=== PATIENT | male | born 1975 | race Two or more races ===

== ENCOUNTER 2016-10-17 15:24 | Inpatient (IN) | payer BC, MEDICAID ==
[~2016-10-17] VITALS: Ht 170.2 cm; Wt 67.6 kg
[~2016-10-17 15:24] MED LIST: AMLO10TA2 PO; ASPI81TA2 PO; BENA10TA2 PO; CLAR500T PO; DOCU-25 PO; FAMO20TA8 PO; GABA-534 PO; LACT10SO PO; METF10002 PO; METO10TA3 PO; METR-105 PO; PANT40TA4 PO; TYL2T PO
--- NOTE | 2016-10-17 15:42 | NUR ---
DR LEON AT BEDSIDE FOR EVAL.
[2016-10-17] MEDS ORDERED: LORAZEPAM INJ 2 MG/ML VIAL ONE (15:53)
[2016-10-17] MEDS ORDERED: IV NS 0.9% 1,000 ML BAG IV ONE ×2 (16:00→17:00)
[2016-10-17] MEDS ORDERED: LORAZEPAM INJ 2 MG/ML VIAL IV ONE (16:00)
[2016-10-17 16:04] LABS: BASOPHILS # (AUTO) 0.1 /CMM (0.0-0.2); BASOPHILS % (AUTO) 0.5 % (0.0-2.0); EOSINOPHILS % (AUTO) 0.3 % (0.0-6.0); HEMATOCRIT 49 % (39-51); HEMOGLOBIN 16.5 g/dL (13.5-17.5); LYMPHOCYTES # (AUTO) 1.4 /CMM (0.8-4.8); LYMPHOCYTES % (AUTO) 11.7 % (20.0-44.0); MEAN CORPUSCULAR HEMOGLOBIN 32 PG (26.0-33.0); MEAN CORPUSCULAR HGB CONC 34 g/dl (31.0-36.0); MEAN CORPUSCULAR VOLUME 94 fL (80-96); MONOCYTES # (AUTO) 0.8 /CMM (0.1-1.30); MONOCYTES % (AUTO) 6.8 % (2.0-12.0); NEUTROPHILS # (AUTO) 9.7 /CMM (1.8-8.9); NEUTROPHILS % (AUTO) 80.7 % (43.0-81.0); PLATELET COUNT (AUTO) 349 /CMM (150-450); RDW COEFFICIENT OF VARIATION 12.4 (11.5-15.0); RED BLOOD CELL COUNT(AUTO) 5.18 MIL/uL (4.5-6.0)
[2016-10-17 16:13] LABS: ALCOHOL, BLOOD < 3 mg/dL (0-0); CALCIUM, SERUM 9.5 mg/dL (8.5-10.1); CARBON DIOXIDE 25 mmol/L (21-32); CHLORIDE 91 mmol/L (98-107); CREATININE 1.3 mg/dL (0.6-1.3); LIPASE 107 U/L (73-393); POTASSIUM 4.1 mmol/L (3.5-5.1); SODIUM SERUM 131 mmol/L (136-145); UREA NITROGEN, BLOOD 31 mg/dL (7-18)
[2016-10-17 16:14] LABS: ALANINE AMINOTRANSFERASE 20 U/L (12-78); ALBUMIN 4.1 g/dL (3.4-5.0); ALKALINE PHOSPHATASE 99 U/L (46-116); ASPARTATE AMINOTRANSFERASE 12 U/L (15-37); BILIRUBIN,DIRECT 0.1 mg/dL (0.0-0.2); BILIRUBIN,TOTAL 0.8 mg/dL (0.2-1.0); GLUCOSE 431 mg/dL (74-106); TOTAL PROTEIN, SERUM 8.2 g/dL (6.4-8.2)
[2016-10-17 16:18] LABS: TROPONIN I < 0.017 ng/mL (0.00-0.056)
--- NOTE | 2016-10-17 16:18 | NUR ---
RADIOLOGY AT BEDSIDE FOR CHEST XRAY.
[2016-10-17] MEDS ORDERED: INSULIN ASPART HUMALOG/NOVOLOG 100 UNIT/ML CARTRIDGE SQ STA (16:37)
[2016-10-17 16:50] LABS: D-DIMER 0.59 mg/L(FEU (0.17-0.50); INR 0.96 (0.87-1.13); PROTHROMBIN TIME 10.2 SECS (9.5-12.7)
[2016-10-17] MEDS ORDERED: IOHEXOL-350 100 ML VIAL IV ONE (18:26)
[2016-10-17] MEDS ORDERED: IV NS 0.9% 250 ML IV ONE (18:26)
[2016-10-17] MEDS ORDERED: CT SWABBABLE VALVE TRANS SET 1 EA INFUS.SET MC ONE (18:26)
--- NOTE | 2016-10-17 18:26 | NUR ---
BLOOD SUGAR RECHECK 278. ERMD AWARE
--- NOTE | 2016-10-17 18:31 | NUR ---
PT OT RADIOLOGY FOR CT PULMONARY ANGIO VIA WHEELCHAIR.
--- NOTE | 2016-10-17 18:42 | NUR ---
CALLED NURSING AIRCRAFT GENERAL REPAIR MECHANIC FOR TELE BED
[2016-10-17] MEDS ORDERED: ESOM20CA PO (18:48)
[2016-10-17] MEDS ORDERED: INSU3INS6 SQ (18:48)
[2016-10-17] MEDS ORDERED: ONDA4TAB5 PO (18:48)
[2016-10-17] MEDS ORDERED: METF500T4 PO (18:48)
[2016-10-17] MEDS ORDERED: NITROGLYCERIN PACKET 1 GM PACKET TOP ONE (19:00)
[2016-10-17] MEDS ORDERED: ASPIRIN 325 MG TABLET PO ONE (19:00)
[2016-10-17] MEDS ORDERED: ASPIRIN 325 MG TABLET ONE (19:00)
[2016-10-17] MEDS ORDERED: NITROGLYCERIN PACKET 1 GM PACKET ONE ×2 (19:00→20:31)
[2016-10-17] MEDS ORDERED: PANTOPRAZOLE 40 MG TABLET.DR PO ONE ×2 (19:19→19:30)
--- NOTE | 2016-10-17 19:28 | NUR ---
ELLIS SAMANO DNP CALLED BACK. TRANSFERRED CALL TO DR LEON
--- NOTE | 2016-10-17 20:14 | NUR ---
REPORT GIVEN TO DAYANARA. PT AWAITING TRANSFER TO FLOOR.
[2016-10-17] MEDS ORDERED: IV NS 0.9% 1,000 ML BAG IV PRN (20:30)
[2016-10-17 21:00] VITALS: BP 118/73
--- NOTE | 2016-10-17 21:00 | NUR ---
TELE/RN NOTES PT ARRIVED TO UNIT FROM ER VIA GURNEY. PT AWAKE AND ALERTX3. ON ROOM AIR, BREATHING EVEN AND UNLABORED. DENIES SOB. PT APPEARS CALM IN NO APPARENT DISTRESS BUT DOES STATE THAT HE HAS BEEN HAVING ABDOMINAL/EPIGASTRIC PAIN, CURRENTLY NOW 06/28. PLACED ON TELE MONITOR SHOWING SINUS TACH WITH PS=[id number]. IV TO LAC PATENT AND INTACT. ORIENTED PT TO ROOM AND CALL LIGHT. BED IN LOW/LOCKED POSITION WITH CALL LIGHT IN REACH. SIDE RAILS UPX2. WILL CONTINUE TO MONITOR
[2016-10-17 21:15] VITALS: BP 118/73
--- NOTE | 2016-10-17 22:15 | NUR ---
TELE/RN NOTES ELLIS SAMANO, GALLERY DIRECTOR AT BEDSIDE TO ASSESS PT. ORDERS NOTED FOR MORPHINE 2MG IV Q3H PRN, TO GIVE NOW, TYLENOL 650MG PO Q6H PRN, TO GIVE 1 DOSE NOW. ALSO NOTIFIED HIM THAT PT IS COMPLAINING OF NAUSEA, ORDERED ZOFRAN 4MG Q4H PRN TO GIVE NOW. OKAY TO PLACE ON DIABETIC DIET 1800. ORDERS NOTED AND CARRIED OUT.
[2016-10-17] MEDS ORDERED: ACETAMINOPHEN 325 MG TABLET ONE (22:30)
[2016-10-17] MEDS ORDERED: MORPHINE SULFATE INJ 2 MG/ML DISP.SYRIN ONE (22:30)
[2016-10-17] MEDS ORDERED: ACETAMINOPHEN 650 MG/20.3 ML UDC PO PRN (22:30)
[2016-10-17] MEDS: MORPHINE SULFATE INJ 2 MG/ML DISP.SYRIN IV PRN (22:35)
[2016-10-17] MEDS ORDERED: ONDANSETRON HCL/PF 4 MG/2 ML VIAL IV PRN (23:00)
[2016-10-17] MEDS ORDERED: ONDANSETRON HCL/PF 4 MG/2 ML VIAL ONE (23:35)
[2016-10-18] VITALS: BP 145/81
--- NOTE | 2016-10-18 00:45 | NUR ---
TELE/RN NOTES AWAITING ADMITTING ORDERS. ELLIS SAMANO MADE AWARE.
--- NOTE | 2016-10-18 01:38 | NUR ---
TELE/RN NOTES ELLIS SAMANO ON UNIT. NOTIFIED HIM OF PT'S 10/29 ABDOMINAL PAIN. ORDERED GI COCKTAIL 30CC OF MAALOX 10CC OF BELLADONNA 10CC OF VISCOUS LIDOCAINE ORDERS NOTED AND CARRIED OUT. HE WILL INPUT ADMITTING ORDERS Addendum: 10/18/16 at 0833 by JEN HANDY RN 10CC OF BELLADONNA NOT CARRIED BY NURSING CUTTING INSPECTOR OR ER. PER ELLIS SAMANO, OKAY TO CHANGE TO BELLADONNA 16.2MG PO. ORDERS NOTED AND CARRIED OUT.
[2016-10-18] MEDS ORDERED: MAG HYDROX/AL HYDROX/SIMETH 30 ML UDC ONE (01:47)
[2016-10-18] MEDS ORDERED: LIDOCAINE VISCOUS 2% UD 15 ML UDC PO ONE (02:00)
[2016-10-18] MEDS ORDERED: MAG HYDROX/AL HYDROX/SIMETH 30 ML UDC PO ONE (02:00)
[2016-10-18] MEDS ORDERED: BELLADONNA /PHENOBARB 5 ML UDC 5 ML UDC PO ONE (02:00)
[2016-10-18] MEDS ORDERED: IV NS 0.9% 1,000 ML IV PRN (02:04)
[2016-10-18] MEDS ORDERED: MENTHOL/CETYLPYRD (CEPACOL) 1 LOZ LOZENGE ONE (02:13)
[2016-10-18] MEDS ORDERED: DEXTROSE 50%-WATER 50 ML DISP.SYRIN IV PRN (02:30)
[2016-10-18] MEDS ORDERED: ENOXAPARIN SODIUM 40 MG/0.4 ML DISP.SYRIN SQ SCH ×2 (02:30→06:54)
[2016-10-18] MEDS ORDERED: ZOLPIDEM TARTRATE 5 MG TABLET PO PRN (02:30)
[2016-10-18] MEDS ORDERED: ONDANSETRON HCL/PF 4 MG/2 ML VIAL IVP PRN (02:30)
[2016-10-18] MEDS ORDERED: *INSULIN REGULAR(HUMULIN R)HUM 100 UNIT/ML VIAL SQ PRN (02:30)
[2016-10-18] MEDS ORDERED: ACETAMINOPHEN 325 MG TABLET PO PRN (02:30)
[2016-10-18] MEDS ORDERED: LACTULOSE 10 G/15 ML UDC (PYXIS) PO PRN (02:30)
[2016-10-18] MEDS ORDERED: BELLADONNA ALK/PHENOBARB TAB 16.2 MG TABLET PO ONE (02:30)
[2016-10-18] MEDS ORDERED: METOCLOPRAMIDE HCL 10 MG TABLET PO PRN (02:30)
[2016-10-18] MEDS ORDERED: LIDOCAINE VISCOUS 2% UD 15 ML UDC ONE (02:34)
[2016-10-18] MEDS ORDERED: BELLADONNA ALK/PHENOBARB TAB 16.2 MG TABLET ONE (02:34)
[2016-10-18] MEDS ORDERED: SUCRALFATE 1 G/10 ML UDC ONE (02:51)
[2016-10-18] MEDS ORDERED: ENOXAPARIN SODIUM 40 MG/0.4 ML DISP.SYRIN SQ ONE (02:54)
[2016-10-18] MEDS ORDERED: INSULIN DETEMIR 100 UNIT/ML CARTRIDGE SQ ONE (03:29)
[2016-10-18] MEDS: SUCRALFATE 1 G/10 ML UDC PO SCH ×3 (03:36→14:08)
[2016-10-18] MEDS: INSULIN DETEMIR 100 UNIT/ML CARTRIDGE SQ SCH ×2 (03:38→09:00)
--- NOTE | 2016-10-18 03:42 | NUR ---
TELE/RN NOTES PER ELLIS SAMANO, OKAY TO GIVE LEVEMIR ALTHOUGH DR. VICENTE MAY SEE PT IN AM FOR CHEST PAIN. BLOOD PWKNO=[id number]. PT STATES THAT GI COCKTAIL IS MORE EFFECTIVE THAN THE MORPHINE AND FEELS SIGNIFICANT RELIEF. PT IS RESTING COMFORTABLY AT THIS TIME. ELLIS SAMANO MADE AWARE Addendum: 10/18/16 at 0751 by JEN HANDY RN TIME JAZMYNE MADE AWARE THAT DR. VICENTE MAY SEE PT IN AM AND PT FOR POSSIBLE DIAGNOSTIC TESTS FOR CHEST PAIN. MAY NEED TO BE NPO, HOWEVER ELLIS SAID OKAY TO GIVE LEVEMIR AND KEEP DIET ORDERED. PT STATED HE ONLY DRANK SIPS THROUGHOUT THE NIGHT BECAUSE IT AGGRAVATED HIS ABDOMINAL PAIN.
[2016-10-18 04:00] VITALS: BP 147/88
[2016-10-18] MEDS: BLOOD SUGAR DIAGNOSTIC 1 EACH STRIP IN SCH ×2 (06:48→11:43)
[2016-10-18] MEDS: INSULIN REGULAR, HUMAN 100 UNIT/ML 3 ML VIAL SQ PRN ×2 (06:56→11:50)
--- NOTE | 2016-10-18 06:57 | NUR ---
TELE/RN NOTES PT'S BLOOD ZWJAO=[id number], ADMINISTERED 12 UNITS OF INSULIN PER SLIDING SCALE. OLAY TO GIVE PER DR. VICENTE. DR. VICENTE AT BEDSIDE TO ASSESS PT Addendum: 10/18/16 at 0753 by JEN HANDY RN POST ADMINISTRATION OF INSULIN, DR. VICENTE ENTERED ORDERS FOR [employer] AND [employer]FORMED [employer] TEACHER TO KEEP PT NPO. ORDERS RELAYED TO DAY SHIFT RN AND DIET ORDER CHANGED.
[2016-10-18] MEDS ORDERED: REGADENOSON 0.4 MG/5 ML DISP.SYRIN IVP ONE (07:00)
[2016-10-18] MEDS: MORPHINE SULFATE INJ 2 MG/ML DISP.SYRIN IV PRN (07:07)
--- NOTE | 2016-10-18 07:30 | NUR ---
SENIOR TAX ANALYST AM NOTES PT IN BED, ASLEEP, AWAKE AND ALERTX3. ON ROOM AIR, BREATHING EVEN AND UNLABORED. DENIES SOB. PT APPEARS CALM IN NO APPARENT DISTRESS, STATES THAT HE HAS BEEN HAVING ABDOMINAL/EPIGASTRIC PAIN, CURRENTLY NOW 05/29. TELEMETRY READS ST HR 104, DENIES CHEST PAIN, IV TO LAC G 18 WITH NS AT 100 ML/HR. SITE CLEAR. NPO FOR NOW FOR LEXISCAN. CALL LIGHT WITHIN REACH. BED IN LOW/LOCKED POSITION. SIDE RAILS UPX2. WILL CONTINUE TO MONITOR
[2016-10-18 07:43] LABS: BASOPHILS % (AUTO) 0.2 % (0.0-2.0); EOSINOPHILS % (AUTO) 0.2 % (0.0-6.0); HEMATOCRIT 40 % (39-51); HEMOGLOBIN 13.9 g/dL (13.5-17.5); LYMPHOCYTES # (AUTO) 2.4 /CMM (0.8-4.8); LYMPHOCYTES % (AUTO) 25.7 % (20.0-44.0); MEAN CORPUSCULAR HEMOGLOBIN 33 PG (26.0-33.0); MEAN CORPUSCULAR HGB CONC 35 g/dl (31.0-36.0); MEAN CORPUSCULAR VOLUME 94 fL (80-96); MONOCYTES # (AUTO) 0.8 /CMM (0.1-1.30); MONOCYTES % (AUTO) 8.8 % (2.0-12.0); NEUTROPHILS % (AUTO) 65.1 % (43.0-81.0); PLATELET COUNT (AUTO) 275 /CMM (150-450); RDW COEFFICIENT OF VARIATION 13.2 (11.5-15.0); RED BLOOD CELL COUNT(AUTO) 4.23 MIL/uL (4.5-6.0); WHITE BLOOD COUNT (AUTO) 9.2 K/uL (4.3-11.0)
[2016-10-18 08:00] VITALS: BP 108/69
[2016-10-18 08:01] LABS: CALCIUM, SERUM 7.8 mg/dL (8.5-10.1); CREATININE 0.8 mg/dL (0.6-1.3); MAGNESIUM 1.9 mg/dL (1.8-2.4); PHOSPHORUS 2.5 mg/dL (2.5-4.9); POTASSIUM 3.7 mmol/L (3.5-5.1)
--- NOTE | 2016-10-18 08:14 | NUR ---
TELE/RN NOTES PT AWAKE, LAYING IN BED, A/OX3, HEBREW SPEAKING BUT UNDERSTANDS SOME SERBIAN. ON RA, BREATHING EVEN AND UNLABORED, DENIES SOB. COMPLAINING OF ABDOMINAL PAIN 09/28, PRN MORPHINE ADMINISTERED. IV TO LAC PATENT AND INTACT RUNNING IVF ORDERED. PT FOR LEXISCAN TODAY PER DR. VICENTE. MADE PT COMFORTABLE POSSIBLE DURING SHIFT. PT STATED THAT GI COCKTAIL GIVEN LAST NIGHT WAS MORE EFFECTIVE WITH HIS PAIN THAN THE MORPHINE. ALL NEEDS MET AND ATTENDED. SIDE RAILS UPX2, BED IN LOW/LOCKED POSITION WITH CALL LIGHT IN REACH. ENDORSED TO AM SHIFT RENETTA.
[2016-10-18 08:25] LABS: CHOLESTEROL 208 mg/dL (<200); HDL CHOLESTEROL 39 mg/dL (40-60); LDL 140 mg/dL (0-99); TRIGLYCERIDES 170 mg/dL (30-150)
--- NOTE | 2016-10-18 08:50 | NUR ---
MR RN NOTES PICKED UP FOR SCHEDULED LEXISCAN.
[2016-10-18] MEDS ORDERED: PANTOPRAZOLE 40 MG TABLET.DR PO SCH (09:00)
[2016-10-18] MEDS ORDERED: METFORMIN 500 MG TABLET PO SCH (09:00)
[2016-10-18] MEDS ORDERED: BENAZEPRIL HCL 10 MG TABLET PO SCH (09:00)
[2016-10-18] MEDS ORDERED: ASPIRIN 81 MG TAB.CHEW PO SCH (09:00)
--- NOTE | 2016-10-18 09:45 | NUR ---
MS RN NOTES PATIENT BACK FROM [facility]. ADMINISTERED DUE MEDS EXCEPT LEVEMIR, PT REFUSED BECAUSE HE HAS NOT EATEN YET.
--- NOTE | 2016-10-18 10:58 | NUR ---
MS RN NOTES PATIENT PICKED UP FOR PART 2 OF LEXISCAN.
--- NOTE | 2016-10-18 11:51 | NUR ---
MS RN NOTES ACCUCHECK DONE. BS 246 MG/DL. ADMINISTERED 8 UNITS HUM R PER SS.
--- NOTE | 2016-10-18 15:51 | NUR ---
MS RN NOTES DISCHARGE PATIENT TO HOME TODAY PER MD IN STABLE CONDITION. PROVIDED DC INSTRUCTIONS, MED RECON LIST/ AND HEALTH TEACHINGS. PATIENT TO FOLLOW UP WITH PCP IN 1-2 WEEKS , WILL MAKE OWN APPOINTMENT. IV ACCESS TO LEFT AC REMOVED. CATH TIP COMPLETE, NO BLEEDING, DRESSING IN PLACE. ALL BELONGINGS CHECKED AND RETURNED. ALL PAPERWORKS SIGNED. ACCOMPANIED BY TIEN RAINES TO BRIANNEADALI WILL BE TRANSPORTED TO HOME VIA PRIVATE CAR BY FAMILY.
[2016-10-18 15:55] VITALS: BP 108/69
== END 2016-10-18 16:00 | disposition home or self-care (01) | DRG 241 ==
LOC: ER 15:28 → TELE 19:55 → MED 10-18 10:20
PROVIDERS: ADMIT Nurse Practitioner Acute Care; ATTEND Nurse Practitioner Acute Care
DX: K29.70 Gastritis, unspecified, without bleeding (principal); N17.0 Acute kidney failure with tubular necrosis; K27.9 Peptic ulcer, site unspecified, unspecified as acute or chronic, without hemorrhage or perforation; I25.10 Atherosclerotic heart disease of native coronary artery without angina pectoris; F32.9 Major depressive disorder, single episode, unspecified; E86.0 Dehydration; I10 Essential (primary) hypertension; K21.0 Gastro-esophageal reflux disease with esophagitis; K86.1 Other chronic pancreatitis; E11.65 Type 2 diabetes mellitus with hyperglycemia; Z79.4 Long term (current) use of insulin; D72.829 Elevated white blood cell count, unspecified; K21.9 Gastro-esophageal reflux disease without esophagitis
CPT/HCPCS: 36415; 71010-TC; 80048-TC; 80061-TC; 80076-TC; 80305; 82962-TC; 83690-TC; 83735-TC; 84100-TC; 84484-TC; 85025-TC; 85378-TC; 85730-TC; 87081-TC; 93307-TC; A4606; A9502; G0480; J1650; J1815; J2060; J2270; J2405; J2785; J3230; J7030; J7050; Q9967; Z7610

== ENCOUNTER 2020-11-22 10:06 | Inpatient (IN) | payer BC, MEDICAID ==
[~2020-11-22] VITALS: Ht 170.2 cm; Wt 75.8 kg
[~2020-11-22 10:06] MED LIST changes: -AMLO10TA2 PO; +ASPI-1169 PO; -ASPI81TA2 PO; -BENA10TA2 PO; +BENA10TA74 PO; -CLAR500T PO; -DOCU-25 PO; +ESOM20CA PO; -FAMO20TA8 PO; -GABA-534 PO; +INSU3INS6 SQ; -LACT10SO PO; +LACT10SO3 PO; +METF-440 PO; -METF10002 PO; -METR-105 PO; +ONDA4TAB5 PO; -PANT40TA4 PO; +PANT40TA49 PO; -TYL2T PO
--- NOTE | 2020-11-22 10:08 | NUR ---
PT DAPHNE FROM HOME, FAMILY CALLED 911 S/P PT WAS NOTED NOT LEAVING ROOM AND BEEN C/O ABDOMINAL PAIN W/ NAUSEA AND VOMIITNG X 8 DAYS. PT GOWNED AND PLACED ON MONITOR. AWAITING MD SUERO.
--- NOTE | 2020-11-22 10:11 | NUR ---
DR ADKINS AT BEDSIDE FOR EVAL.
[2020-11-22] MEDS ORDERED: ONDANSETRON HCL/PF 4 MG/2 ML VIAL ONE (10:15)
--- NOTE | 2020-11-22 10:15 | NUR ---
IV LINE STARTED BLOOD DRAWN AND SENT TO LAB.
[2020-11-22 10:25] LABS: BASOPHILS # (AUTO) 0.1 K/uL (0.0-0.2); BASOPHILS % (AUTO) 0.3 % (0.0-2.0); HEMATOCRIT 40 % (39-51); HEMOGLOBIN 12.9 g/dL (13.5-17.5); LYMPHOCYTES # (AUTO) 1.1 K/uL (0.8-4.8); LYMPHOCYTES % (AUTO) 6.5 % (20.0-44.0); MEAN CORPUSCULAR HGB CONC 32 g/dl (31.0-36.0); MEAN CORPUSCULAR VOLUME 92 fL (80-96); MONOCYTES # (AUTO) 0.4 K/uL (0.1-1.30); MONOCYTES % (AUTO) 2.4 % (2.0-12.0); NEUTROPHILS # (AUTO) 15.5 K/uL (1.8-8.9); NEUTROPHILS % (AUTO) 90.8 % (43.0-81.0); PLATELET COUNT (AUTO) 442 K/uL (150-450); WHITE BLOOD COUNT (AUTO) 17.1 K/uL (4.3-11.0)
[2020-11-22] MEDS ORDERED: ONDANSETRON HCL/PF 4 MG/2 ML VIAL IVP ONE (10:30)
[2020-11-22] MEDS ORDERED: IV NS 0.9% 1,000 ML BAG IV ONE ×2 (10:30→11:00)
--- NOTE | 2020-11-22 10:39 | NUR ---
UNABLE TO PROVIDE URINE SAMPLE AT THIS TIME. PT PROVIDED W/ URINAL AT BEDSIDE.
[2020-11-22 10:40] LABS: ALBUMIN 4.3 g/dL (3.4-5.0); BILIRUBIN,DIRECT 0.1 mg/dL (0.0-0.2); BILIRUBIN,TOTAL 0.2 mg/dL (0.2-1.0); CALCIUM, SERUM 9.2 mg/dL (8.5-10.1); CREATININE 3.1 mg/dL (0.6-1.3); POTASSIUM 3.8 mmol/L (3.5-5.1)
[2020-11-22 10:53] LABS: BILIRUBIN,URINE Negative (NEGATIVE); COLOR,URINE YELLOW (YELLOW); LEUKOCYTE ESTERASE ,URINE Negative (NEGATIVE); NITRITE, URINE Negative (NEGATIVE); PH,URINE 5.5 (5.0-8.0); PROTEIN,URINE Negative (NEGATIVE); UGLUCOSE 500 MG/DL mg/dL (NEGATIVE); UROBILINOGEN,URINE 0.2 EU/dL (0.2)
[2020-11-22] MEDS ORDERED: INSULIN REGULAR, HUMAN 100 UNIT/ML 10 ML VIAL SQ ONE (11:00)
[2020-11-22 11:02] LABS: BACTERIA,URINE Rare /HPF (None Seen); RBC,URINE 0-2 /HPF (0-2); WBC,URINE 0-2 /HPF (0-3)
[2020-11-22] MEDS ORDERED: INSULIN REGULAR, HUMAN 100 UNIT/ML 10 ML VIAL ONE (11:02)
[2020-11-22 11:03] LABS: SQUAMOUS EPITHELIAL CELL,UR 0-2 /HPF (None Seen)
[2020-11-22] MEDS ORDERED: GLIP10TA11 PO (11:08)
[2020-11-22] MEDS ORDERED: HYDR-4076 PO (11:08)
[2020-11-22] MEDS ORDERED: CARV12.52 PO (11:08)
[2020-11-22] MEDS ORDERED: SIMV-46 PO (11:08)
[2020-11-22] MEDS ORDERED: INSU100I26 SQ (11:08)
[2020-11-22] MEDS ORDERED: TOPI25TA49 PO (11:08)
[2020-11-22] MEDS ORDERED: IOHEXOL-300 100 ML VIAL IV ONE (11:11)
[2020-11-22] MEDS ORDERED: CT SWABBABLE VALVE TRANS SET 1 EA INFUS.SET MC ONE (11:11)
[2020-11-22] MEDS ORDERED: IV NS 0.9% 250 ML IV ONE (11:11)
[2020-11-22] MEDS ORDERED: GABA-532 PO (11:12)
--- NOTE | 2020-11-22 11:20 | NUR ---
PT TAKEN TO RADIOLOGY FOR ABDOMINAL CT SCAN VIA GURNEY.
--- NOTE | 2020-11-22 13:17 | NUR ---
room [id number]
--- NOTE | 2020-11-22 13:34 | NUR ---
REPORT GIVEN TO JUSTIN BENSON. PT AWAITNG TRANSFER TO FLOOR.
[2020-11-22] MEDS ORDERED: DEXTROSE 50%-WATER 50 ML DISP.SYRIN IV PRN (14:00)
[2020-11-22] MEDS ORDERED: ACETAMINOPHEN 325 MG TABLET PO PRN (14:00)
[2020-11-22] MEDS ORDERED: hydrALAZINE HCL IV 20 MG VIAL IV PRN (14:00)
[2020-11-22] MEDS ORDERED: *INSULIN REGULAR(HUMULIN R)HUM 100 UNIT/ML VIAL SQ PRN (14:00)
[2020-11-22] MEDS ORDERED: LABETALOL 20 MG/4 ML VIAL IV PRN (14:00)
--- NOTE | 2020-11-22 14:50 | NUR ---
[facility] ROOM, 119-1
--- NOTE | 2020-11-22 15:04 | NUR ---
report given to Erendira BENSON for jennifer.
--- NOTE | 2020-11-22 15:18 | NUR ---
wheeled patient via gurney accompanied by RN and emt in no distress. RN assigned to patient at bedside to assume care.
[2020-11-22 15:20] VITALS: BP 138/83
--- NOTE | 2020-11-22 15:20 | NUR ---
RN NOTES ADMITTED PATIENT FROM ER, DX PANCREATITIS, BY DR. ONEILL. AOX 4, ON 2L O2 NASAL CANULA SATTING 100%, NOT IN ANY DISTRESS, RESPIRATION UNLABORED, ST HR 117 ON MONITOR. C/O ABDOMINAL PAIN AT 5/10. NO VOMITING, NO NAUSEA. IV ACCESS ON RAC G 18, FLUSHES WELL , SITE CLEAR, NPO FOR NOW. SKIN INTACT, UNIT ORIENTATION AND USE OF CALL LIGHT DONE, SR UP X 2, BED LOW LOCKED, WILL CONT TO MONITOR.
[2020-11-22 15:40] LABS: ALBUMIN 3.5 g/dL (3.4-5.0); BILIRUBIN,TOTAL 0.1 mg/dL (0.2-1.0); CALCIUM, SERUM 8.3 mg/dL (8.5-10.1); CREATININE 2.7 mg/dL (0.6-1.3); POTASSIUM 4.3 mmol/L (3.5-5.1); TOTAL PROTEIN, SERUM 7.5 g/dL (6.4-8.2)
[2020-11-22 15:48] LABS: C-REACTIVE PROTEIN < 0.2 mg/dL (0.0-0.9)
[2020-11-22] MEDS: IV NS 0.9% 1,000 ML IV PRN ×2 (15:48→23:50)
[2020-11-22] MEDS: BLOOD SUGAR DIAGNOSTIC 1 EACH STRIP IN SCH ×3 (15:57→21:34)
[2020-11-22] MEDS: CEFTRIAXONE 1 G in IV D5W 50 ML IV SCH (15:58)
[2020-11-22] MEDS: METRONIDAZOLE 500MG/ NS 100ML 500 MG in PREMIX 1 EA IV SCH ×2 (15:59→21:34)
[2020-11-22] MEDS: INSULIN REGULAR, HUMAN 100 UNIT/ML 3 ML VIAL SQ PRN ×2 (16:06→18:00)
--- NOTE | 2020-11-22 16:24 | NUR ---
RN NOTES DR. ONEILL NOTIFIED, BLOOD SUGAR FROM 499 TO 430. LATEST ACCUCHECK AT 1557 WAS 376 MG/DL AND WAS GIVEN 20 UNITS HUMULIN. NO NEW ORDERS.
--- NOTE | 2020-11-22 16:41 | NUR ---
RN NOTES PER DR. ONEILL , TRY CLEAR LIQUIDS AND MEDS IF HE TOLERATES. ALSO TO INCREASE NS INFUSION RATE TO 200 ML/HR. REPEAT LACTIC ACID AT 1800. ALL ORDERS CARRIED OUT.
[2020-11-22] MEDS: hydrALAZINE HCL 25 MG TABLET PO SCH (17:04)
[2020-11-22] MEDS: SIMVASTATIN 20 MG TABLET PO SCH (17:04)
[2020-11-22] MEDS: glipiZIDE 10 MG TABLET PO SCH (17:04)
[2020-11-22] MEDS: GABAPENTIN 100 MG CAPSULE PO SCH (17:04)
[2020-11-22] MEDS: CARVEDILOL 12.5 MG TABLET PO SCH (17:04)
[2020-11-22] MEDS: TOPIRAMATE 25 MG TABLET PO SCH (17:04)
--- NOTE | 2020-11-22 17:19 | NUR ---
RN NOTES; UPON PT ARRIVING FROM ER. B/S WAS CHECKED AT 1557 FOR 1400 ORDER. RESULTS 376, 20U OF INSULIN WAS GIVEN PER SLIDING ORDER AT 1606. WILL CONTINUE TO MONITOR.
[2020-11-22 18:10] LABS: CREATININE, URINE 62.5 MG/DL (30.0-125.0)
--- NOTE | 2020-11-22 18:16 | NUR ---
RN CLOSING NOTES; RN NOTES PT IS RESTING IN SUPINE POS. AOX 4, ON 2L O2 VIA NASAL CANULA. NO SOB, OR DISTRESS NOTED. PT ABLE TO TOLERATE CLEAR LIQUID DIET, NO VOMITING, NO NAUSEA. IV ACCESS ON RAC G 18, FLUSHES WELL , SITE CLEAR, NPO FOR NOW. SKIN INTACT, UNIT ORIENTATION AND USE OF CALL LIGHT DONE, SR UP X 2, BED LOW LOCKED, WILL CONT TO MONITOR. PT KEPT CLEAN, DRY, AND COMFORTABLE. SAFETY MEASURES RENDERED, BED IN LOWEST POS. LOCKED, WITH CALL LIGHT WITHIN REACH. ENDORSED TO DIESEL LOCOMOTIVE FIRER IN STABLE CONDITION.
--- NOTE | 2020-11-22 18:27 | NUR ---
RN NOTES; LACTIC ACID RESULTS CAME BACK AT 2.6. TRENDING DOWN FROM 5.3. MD MADE AWARE.
--- NOTE | 2020-11-22 19:59 | NUR ---
RN NOTES RECIEVED PATIENT IN BED AWAKE, ALERT, AXO3. COMPLAINING OF PAIN IN LEFT UPPER QUADRANT. 09/28. WILL GIVE PAIN MEDICATION ORDERED. PATIENT BREATHING UNLABORED, NO SOB NOTED. NOTED WITH RIGHT AC IV ACCESS WITH IV FLUIDS INFUSING. NS @ 200 ML/HR. NO SIGNS AND SYMPTOMS OF INFILTRATION NOTED. NO N/V NOTED. SIDE RAILS UP, CALL LIGHT WITHIN REACH.
[2020-11-22 20:00] VITALS: BP 130/80
[2020-11-22] MEDS: MORPHINE SULFATE INJ 2 MG/ML DISP.SYRIN IV PRN (20:17)
--- NOTE | 2020-11-22 20:17 | NUR ---
RAE RN NOTE ADMINISTERED MORPHINE 2MG/1ML VIA IV PUSH FOR PAIN RATE OF 8/10, LEFT UPPER QUADRANT. GUARDING. WILL CONTINUE TO MONITOR.
[2020-11-22] MEDS: INSULIN GLARGINE, 100 UNIT/ML CARTRIDGE SQ SCH (21:42)
[2020-11-22] MEDS ORDERED: INSULIN GLARGINE,BASAGLAR 100 UNIT/ML INSULN.PEN SQ SCH (22:00)
[2020-11-22] MEDS: ONDANSETRON HCL/PF 4 MG/2 ML VIAL IVP PRN (23:45)
[2020-11-22] MEDS: LORAZEPAM INJ 2 MG/ML VIAL IV PRN (23:50)
[2020-11-23] VITALS: BP 114/68
[2020-11-23] MEDS: LORAZEPAM INJ 2 MG/ML VIAL IV PRN (03:40)
[2020-11-23] MEDS: METOCLOPRAMIDE HCL 10 MG TABLET PO PRN ×2 (03:41→18:52)
--- NOTE | 2020-11-23 03:41 | NUR ---
RAE RN NOTES PATIENT ANXIOUS WITH HEART RATE OF 126 BPM. ATIVAN 2 MG IV PUSH ORDERED. COMPLAINING OF FEELING OF NAUSEA, UNABLE TO GIVE ZOFRAN AT THIS TIME, REGLAN 10 MG PO. GIVEN AT THIS TIME. MD NOTIFIED FOR ATIVAN IV PUSH. WILL CONTINUE TO MONITOR.
[2020-11-23 04:00] VITALS: BP 113/66
[2020-11-23] MEDS: METRONIDAZOLE 500MG/ NS 100ML 500 MG in PREMIX 1 EA IV SCH ×3 (05:26→21:56)
[2020-11-23 06:29] LABS: BASOPHILS % (AUTO) 0.1 % (0.0-2.0); HEMATOCRIT 26 % (39-51); HEMOGLOBIN 8.9 g/dL (13.5-17.5); LYMPHOCYTES # (AUTO) 2.4 K/uL (0.8-4.8); LYMPHOCYTES % (AUTO) 13.2 % (20.0-44.0); MEAN CORPUSCULAR HGB CONC 34 g/dl (31.0-36.0); MEAN CORPUSCULAR VOLUME 90 fL (80-96); MONOCYTES # (AUTO) 1.8 K/uL (0.1-1.30); MONOCYTES % (AUTO) 10.1 % (2.0-12.0); NEUTROPHILS # (AUTO) 13.8 K/uL (1.8-8.9); NEUTROPHILS % (AUTO) 76.6 % (43.0-81.0); PLATELET COUNT (AUTO) 324 K/uL (150-450); RED BLOOD CELL COUNT(AUTO) 2.92 MIL/uL (4.5-6.0); WHITE BLOOD COUNT (AUTO) 17.9 K/uL (4.3-11.0)
[2020-11-23 06:54] LABS: BILIRUBIN,TOTAL 0.1 mg/dL (0.2-1.0); CALCIUM, SERUM 7.5 mg/dL (8.5-10.1); CREATININE 2.1 mg/dL (0.6-1.3); MAGNESIUM 2.1 mg/dL (1.8-2.4); POTASSIUM 3.7 mmol/L (3.5-5.1); TOTAL PROTEIN, SERUM 6.3 g/dL (6.4-8.2)
--- NOTE | 2020-11-23 07:20 | NUR ---
RN OPENING NOTES; RECEIVED PT SLEEPING IN SIDE LYING POS. PT A/OX4, PT IS AMBULATORY, AND CAN VERBALIZE ALL NEEDS. RAC NOTED, PATENT RUNNING NS @ 200ML/HR. NO DISTRESS, SOB NOTED, ALL SAFETY MEASURES CHECK, RENDERED, BED LOCKED, IN LOWEST POS. WITH CALL LIGHT WITHIN REACH. WILL CONTINUE TO MONITOR.
[2020-11-23] MEDS ORDERED: ESOMEPRAZOLE MAG TRIHYDRATE 20 MG CAPSULE.DR PO SCH (07:30)
[2020-11-23] MEDS: BLOOD SUGAR DIAGNOSTIC 1 EACH STRIP IN SCH ×4 (07:36→21:45)
[2020-11-23] MEDS: INSULIN REGULAR, HUMAN 100 UNIT/ML 3 ML VIAL SQ PRN ×3 (07:37→17:50)
[2020-11-23] MEDS: IV NS 0.9% 1,000 ML IV PRN ×2 (07:56→11:44)
[2020-11-23 08:00] VITALS: BP 114/66
[2020-11-23] MEDS: PANTOPRAZOLE 40 MG TABLET.DR PO SCH (08:10)
[2020-11-23] MEDS: glipiZIDE 10 MG TABLET PO SCH ×2 (08:10→17:19)
[2020-11-23] MEDS: ASPIRIN 81 MG TAB.CHEW PO SCH (08:10)
[2020-11-23] MEDS: GABAPENTIN 100 MG CAPSULE PO SCH ×3 (08:10→17:01)
[2020-11-23] MEDS: hydrALAZINE HCL 25 MG TABLET PO SCH ×3 (08:10→16:56)
[2020-11-23] MEDS: CARVEDILOL 12.5 MG TABLET PO SCH ×2 (08:11→16:57)
[2020-11-23] MEDS: TOPIRAMATE 25 MG TABLET PO SCH ×2 (08:11→16:57)
[2020-11-23 12:00] VITALS: BP 114/66
[2020-11-23 13:49] LABS: ALBUMIN 3.3 g/dL (3.4-5.0); BILIRUBIN,TOTAL 0.1 mg/dL (0.2-1.0); CALCIUM, SERUM 7.9 mg/dL (8.5-10.1); CREATININE 2.1 mg/dL (0.6-1.3); POTASSIUM 3.8 mmol/L (3.5-5.1); TOTAL PROTEIN, SERUM 6.7 g/dL (6.4-8.2)
[2020-11-23] MEDS: CEFTRIAXONE 1 G in IV D5W 50 ML IV SCH (14:00)
--- NOTE | 2020-11-23 15:15 | NUR ---
RN NOTES GAVE REPORT TO KELLEY LOPEZ FOR CONTINUITY OF CARE. PT ENDORSED IN STABLE CONDITION.
[2020-11-23 16:00] VITALS: BP 124/83
[2020-11-23] MEDS: MORPHINE SULFATE INJ 2 MG/ML DISP.SYRIN IV PRN (16:50)
[2020-11-23] MEDS: ONDANSETRON HCL/PF 4 MG/2 ML VIAL IVP PRN (16:50)
[2020-11-23] MEDS: SIMVASTATIN 20 MG TABLET PO SCH (17:19)
--- NOTE | 2020-11-23 19:30 | NUR ---
RN NOTE RECIEVED PATIENT IN BED, RESTING, EASILY AROUSABLE. BREATHING EVEN AND UNLABORED. CURRENTLY ON 2L/NC. TOLERATING WELL. NO SOB NOTED. SKIN IS WARM AND DRY TO TOUCH, AFEBRILE. DENIES PAIN AT THIS TIME. DENIES FEELING NAUSEA AT THIS TIME. NO EMESIS NOTED. NOTED WITH RIGHT AC IV ACCESS. RUNNING NS AT 100 ML/HR. NO INFILTRATION NOTED. CALL LIGHT WITHIN REACH.
[2020-11-23 20:00] VITALS: BP 138/85
[2020-11-23] MEDS: INSULIN GLARGINE, 100 UNIT/ML CARTRIDGE SQ SCH (21:56)
[2020-11-23 21:59] LABS: ALBUMIN 3.2 g/dL (3.4-5.0); BILIRUBIN,TOTAL 0.1 mg/dL (0.2-1.0); CALCIUM, SERUM 7.7 mg/dL (8.5-10.1); CREATININE 1.6 mg/dL (0.6-1.3); POTASSIUM 3.4 mmol/L (3.5-5.1); TOTAL PROTEIN, SERUM 6.6 g/dL (6.4-8.2)
[2020-11-24] MEDS: IV NS 0.9% 1,000 ML IV PRN (01:01)
[2020-11-24] MEDS: ONDANSETRON HCL/PF 4 MG/2 ML VIAL IVP PRN (02:14)
[2020-11-24] MEDS: MORPHINE SULFATE INJ 2 MG/ML DISP.SYRIN IV PRN (02:15)
--- NOTE | 2020-11-24 02:15 | NUR ---
RN NOTE PATIENT COMPLAINING OF NAUSEA AND PAIN IN MEDIAL ABDOMEN. NO EMESIS NOTED. PAIN RATING OF 8/10 USING NUMERICAL PAIN SCALE. PROVIDED EMESIS BAG AND ASSISTED WITH REPOSITION, NO RELIEF. ADMINISTERED ZOFRAN 2MG AND MORPHINE 2 MG. WILL CONTINUE TO MONITOR.
[2020-11-24 04:00] VITALS: BP 155/85
[2020-11-24] MEDS: METRONIDAZOLE 500MG/ NS 100ML 500 MG in PREMIX 1 EA IV SCH ×2 (04:48→12:58)
--- NOTE | 2020-11-24 04:59 | NUR ---
RN NOTE PATIENT NOTED WITH BP OF 155/85, HR OF 104. ADMINISTERED LABETALOL 10 MG IV PUSH ORDERED FOR SBP>140. WILL CONTINUE TO MONITOR.
[2020-11-24] MEDS: METOCLOPRAMIDE HCL 10 MG TABLET PO PRN (05:41)
[2020-11-24 07:13] LABS: BASOPHILS % (AUTO) 0.2 % (0.0-2.0); EOSINOPHILS % (AUTO) 0.1 % (0.0-6.0); HEMATOCRIT 26 % (39-51); HEMOGLOBIN 8.7 g/dL (13.5-17.5); LYMPHOCYTES % (AUTO) 27.5 % (20.0-44.0); MEAN CORPUSCULAR HGB CONC 34 g/dl (31.0-36.0); MEAN CORPUSCULAR VOLUME 92 fL (80-96); MONOCYTES % (AUTO) 9.2 % (2.0-12.0); NEUTROPHILS # (AUTO) 6.9 K/uL (1.8-8.9); PLATELET COUNT (AUTO) 283 K/uL (150-450); RED BLOOD CELL COUNT(AUTO) 2.85 MIL/uL (4.5-6.0); WHITE BLOOD COUNT (AUTO) 10.9 K/uL (4.3-11.0)
--- NOTE | 2020-11-24 07:27 | NUR ---
RN NOTE PATIENT AOX4. ABLE TO MAKE NEEDS KNOWN. VITAL SIGNS WITHIN NORMAL LIMIT AT THIS TIME. NO EPISODE OF EMESIS DURING SHIFT. PATIENT COMPLAINED OF NAUSEA AND MEDIAL ABDOMINAL PAIN. PAIN LEVEL DECREASED TO TOLERABLE LEVEL. ASSISTED WITH REPOSITION. KEPT CLEAN AND DRY AT ALL TIMES. CALL LIGHT WITHIN REACH. ENDORSED TO NEXT SHIFT ACCORDINGLY.
--- NOTE | 2020-11-24 07:30 | NUR ---
MS RN OPENING NOTE RECEIVED PT AWAKE IN BED. A/O X4, ABLE TO MAKE NEEDS KNOWN. PT ON 2LPM O2 VIA NC SATURATING AT 100%. NO SOB OR S/S OF RESPIRATORY DISTRESS NOTED. PT HAS NO C/O PAIN OR DISCOMFORT AT THIS TIME. IV ACCESS IN RAC #18 INFUSING NS AT 100ML/HR, INTACT AND PATENT. SAFETY PRECAUTIONS MAINTAINED. BED IN LOWEST LOCKED POSITION, HOB ELEVATED, SIDE RAILS UP X2. CALL LIGHT AND TABLE WITHIN REACH. WILL CONTINUE WITH PLAN OF CARE.
[2020-11-24] MEDS: PANTOPRAZOLE 40 MG TABLET.DR PO SCH (07:42)
[2020-11-24 07:53] LABS: BILIRUBIN,DIRECT 0.1 mg/dL (0.0-0.2); BILIRUBIN,TOTAL 0.2 mg/dL (0.2-1.0); CALCIUM, SERUM 7.8 mg/dL (8.5-10.1); CREATININE 1.4 mg/dL (0.6-1.3); MAGNESIUM 2.1 mg/dL (1.8-2.4); PHOSPHORUS 2.3 mg/dL (2.5-4.9); POTASSIUM 3.4 mmol/L (3.5-5.1); TOTAL PROTEIN, SERUM 6.4 g/dL (6.4-8.2)
[2020-11-24] MEDS: BLOOD SUGAR DIAGNOSTIC 1 EACH STRIP IN SCH ×2 (07:53→12:03)
[2020-11-24] MEDS: INSULIN REGULAR, HUMAN 100 UNIT/ML 3 ML VIAL SQ PRN ×2 (08:06→12:07)
[2020-11-24] MEDS: hydrALAZINE HCL 25 MG TABLET PO SCH ×2 (08:38→13:00)
[2020-11-24] MEDS: CARVEDILOL 12.5 MG TABLET PO SCH (08:38)
[2020-11-24] MEDS: ASPIRIN 81 MG TAB.CHEW PO SCH (08:38)
[2020-11-24] MEDS: glipiZIDE 10 MG TABLET PO SCH (08:39)
[2020-11-24] MEDS: TOPIRAMATE 25 MG TABLET PO SCH (08:39)
[2020-11-24] MEDS: GABAPENTIN 100 MG CAPSULE PO SCH ×2 (08:39→12:58)
[2020-11-24] MEDS ORDERED: LEVO500T90 PO (09:32)
[2020-11-24] MEDS ORDERED: POTASSIUM CHLORIDE 20 MEQ TAB.PRT.SR PO SCH (10:00)
[2020-11-24 12:00] VITALS: BP 136/84
[2020-11-24 13:00] VITALS: BP 137/85
--- NOTE | 2020-11-24 14:15 | NUR ---
MS PUMP SERVICER HELPER NOTE PT DISCHARGED HOME WITH SELF CARE AT THIS TIME. PT IS MEDICALLY STABLE AND CLEARED FOR DISCHARGE BY DR. ARELLANO. ALL PT CARE, NEEDS, MEDICATIONS, AND TREATMENT ADMINISTERED PER ORDER. DISCHARGE INSTRUCTIONS PROVIDED TO PT. PT VERBALIZED UNDERSTANDING. PT KEPT CLEAN AND DRY. IV ACCESS REMOVED, PRESSURE APPLIED, AND SECURED WITH GAUZE AND TAPE. NO SIGNS OF BLEEDING NOTED. ID BAND REMOVED. PT TRANSPORTED TO [facility] VIA WHEELCHAIR, ACCOMPANIED BY MISSY RAINES AND PT'S SISTER. MAIKEL CHARGE NURSE AND DR. ARELLANO AWARE.
== END 2020-11-24 16:52 | disposition home or self-care (01) | DRG 243 ==
LOC: ER 10:07 → MED 13:19 → MEDSG1 14:51 → TELE-TD 16:38 → MEDSG1 11-23 09:17
PROVIDERS: ADMIT Internal Medicine; ATTEND Internal Medicine
DX: K20.90 Esophagitis, unspecified without bleeding (principal); N17.0 Acute kidney failure with tubular necrosis; E87.2 Acidosis; E11.65 Type 2 diabetes mellitus with hyperglycemia; Z20.822 Contact with and (suspected) exposure to COVID-19; R11.2 Nausea with vomiting, unspecified; I10 Essential (primary) hypertension; Z79.82 Long term (current) use of aspirin; Z91.19 Patient's noncompliance with other medical treatment and regimen; F10.21 Alcohol dependence, in remission; Z79.4 Long term (current) use of insulin; R74.8 Abnormal levels of other serum enzymes
CPT/HCPCS: 36415; 74250-TC; 80048-TC; 80053-TC; 80076-TC; 81001; 82010-TC; 82550-TC; 82570-TC; 82962-TC; 83605-TC; 83690-TC; 83735-TC; 84100-TC; 84300-TC; 84484-TC; 85025-TC; 86140-TC; 87040-TC; 87081-TC; A4216; C9803; G0378; G0480; J0696; J1815; J2060; J2270; J2405; J3490; J7030; J7050; J7060; J8597; Q9967